=== PATIENT | female | born 1940 | race Caucasian/White ===

== ENCOUNTER 2016-09-21 17:28 | Observation (INO) | payer MEDICARE ==
[2016-09-21] MEDS ORDERED: HYDROmorphone 1 MG/ML 1 ML SYRINGE IM STA (18:36)
[2016-09-21] MEDS ORDERED: HYDROmorphone 1 MG/ML 1 ML SYRINGE IVP STA (18:40)
[2016-09-21] MEDS ORDERED: ONDANSETRON 4 MG/2 ML VIAL IVP STA (18:40)
--- NOTE | 2016-09-21 18:48 | ED ---
Lower Extremity Injury HPI - General Source: patient, RN notes reviewed, old records reviewed Mode of arrival: wheelchair Limitations: no limitations <Kristine Mera - Last Filed: 09/21/16 21:29> <Alec Brannon - Last Filed: 09/21/16 21:53> - General Chief Complaint: Extremity Injury, Lower Stated Complaint: Left knee popping/pain Time Seen by Provider: 09/21/16 18:24 - History of Present Illness Initial Comments: This is a 75-year-old female presenting to the emergency Department chief complaint of right hip and knee pain after twisting and feeling a popping sensation while gardening today. Patient reports that she's had bilateral hip replacements in 1989 and 1990 respectively. Patient reports that she's had also bilateral hip revisions. Her right hip was recently done in March. She reports that she is from [place] and visiting her son for vacation. Patient reports that the pain radiates through her entire hip, pelvis and down to her knee. Patient denies any peripheral paresthesias over her feet and ankles. She put that she does have some flexion and extension of the knee but it does cause pain radiating up to the hip. Patient reports that she fell once earlier in the day and felt a cracking sensation but was shortly able to bear weight on it afterwards. She states that she did fall a second time and have a twisting a popping sensation in which she cannot bear any weight. Her son and her son's friend had a carry her to the car to come to the emergency department. ( Kristine Mera) - Related Data Home Medications Medication Instructions Recorded Confirmed Aspirin 81 mg PO DAILY 09/21/16 09/21/16 Simvastatin [Zocor] 20 mg PO DAILY 09/21/16 09/21/16 metFORMIN HCL [Glucophage] 500 mg PO DAILY 09/21/16 09/21/16 Allergies Allergy/AdvReac Type Severity Reaction Status Date / Time No Known Allergies Allergy Verified 09/21/16 18:37 Review of Systems ROS Other: All systems not noted in ROS Statement are negative. <Kristine Mera - Last Filed: 09/21/16 21:29> ROS Other: All systems not noted in ROS Statement are negative. <Alec Brannon - Last Filed: 09/21/16 21:53> ROS Statement: Those systems with pertinent positive or pertinent negative responses have been documented in the HPI. Past Medical History Past Medical History: Diabetes Mellitus History of Any Multi-Drug Resistant Organisms: None Reported Additional Past Surgical History / Comment(s): (R) hip revision Past Psychological History: No Psychological Hx Reported Smoking Status: Never smoker Past Alcohol Use History: Occasional Past Drug Use History: None Reported <Kristine Mera - Last Filed: 09/21/16 21:29> General Exam Limitations: no limitations General appearance: alert, in no apparent distress Head exam: Present: atraumatic, normocephalic, normal inspection Eye exam: Present: normal appearance, PERRL, EOMI. Absent: scleral icterus, conjunctival injection, periorbital swelling ENT exam: Present: normal exam, mucous membranes moist Neck exam: Present: normal inspection. Absent: tenderness, meningismus, lymphadenopathy Respiratory exam: Present: normal lung sounds bilaterally. Absent: respiratory distress, wheezes, rales, rhonchi, stridor Cardiovascular Exam: Present: regular rate, normal rhythm, normal heart sounds. Absent: systolic murmur, diastolic murmur, rubs, gallop, clicks GI/Abdominal exam: Present: soft, normal bowel sounds. Absent: distended, tenderness, guarding, rebound, rigid Extremities exam: Present: normal inspection, full ROM, normal capillary refill. Absent: tenderness, pedal edema, joint swelling, calf tenderness Right Hip exam: Present: internal rotation, shortening. Absent: full ROM, tenderness Upper Leg exam: Absent: normal inspection, full ROM Knee exam: Present: normal inspection Ankle exam: Present: normal inspection, full ROM Foot/Toe exam: Present: normal inspection, full ROM Neurovascular tendon exam: Present: no vascular compromise Gait: not tested/not observed. negative: observed and normal Back exam: Present: normal inspection Neurological exam: Present: alert, oriented X3, CN II-XII intact Psychiatric exam: Present: normal affect, normal mood Skin exam: Present: warm, dry, intact, normal color. Absent: rash <Kristine Mera - Last Filed: 09/21/16 21:29> <Alec Brannon - Last Filed: 09/21/16 21:53> - General Exam Comments Initial Comments: 75-year-old female. Patient appears to be in acute discomfort. (Kristine Mera ) Procedures <Kristine Mera - Last Filed: 09/21/16 21:29> - Procedural Sedation Indications: fracture/dislocation reduction Mallampati Airway Score: 2 Preparation: desk monitor applied, pulse oximeter, capnometry used, supplemental O2 applied, suction/airway equipment at bedside, IV secured IV Propofol Dose (mgs): 110 Complications: none Patient Tolerated Procedure: well <Alec Brannon - Last Filed: 09/21/16 21:53> - Procedural Sedation Additional Comments: Right hip dislocation (Alec Brannon) Medical Decision Making - Lab Data Result diagrams: 09/21/16 18:50 09/21/16 18:50 <Kristine Mera - Last Filed: 09/21/16 21:29> - Lab Data Result diagrams: 09/21/16 18:50 09/21/16 18:50 <Alec Brannon - Last Filed: 09/21/16 21:53> - Medical Decision Making Patient with right hip dislocation. Patient has had bilateral hip replacement in the past. She does not have an orthopedic surgeon in this health system. Case is discussed with orthopedic surgery human resources compensation analyst and the patient will be evaluated in the emergency department urgently. Patient is sedated with propofol. Right hip was reduced under conscious sedation by orthopedic surgery in the emergency department. Patient will be observed to orthopedic surgery. (Alec Brannon) - Lab Data Lab Results 09/21/16 09/21/16 09/21/16 Range/Units 18:50 18:50 18:50 WBC 15.8 H (3.8-10.6) k/uL RBC 4.15 (3.80-5.40) m/uL Hgb 13.1 (11.4-16.0) gm/dL Hct 37.6 (34.0-46.0) % MCV 90.7 (80.0-100.0) fL MCH 31.5 (25.0-35.0) pg MCHC 34.8 (31.0-37.0) g/dL RDW 13.6 (11.5-15.5) % Plt Count 236 (150-450) k/uL Neutrophils % 81 % Lymphocytes % 14 % Monocytes % 3 % Eosinophils % 1 % Basophils % 0 % Neutrophils # 12.8 H (1.3-7.7) k/uL Lymphocytes # 2.3 (1.0-4.8) k/uL Monocytes # 0.4 (0-1.0) k/uL Eosinophils # 0.1 (0-0.7) k/uL Basophils # 0.1 (0-0.2) k/uL PT 10.8 (9.0-12.0) sec INR 1.1 (<1.1) APTT 26.4 (22.0-30.0) sec Sodium 142 (137-145) mmol/L Potassium 3.8 (3.5-5.1) mmol/L Chloride 109 H (98-107) mmol/L Carbon Dioxide 19 L (22-30) mmol/L Anion Gap 14 mmol/L BUN 18 H (7-17) mg/dL Creatinine 0.86 (0.52-1.04) mg/dL Est GFR (MDRD) Af Amer >60 (>60 ml/min/1.73 sqM) Est GFR (MDRD) Non-Af >60 (>60 ml/min/1.73 sqM) Glucose 163 H (74-99) mg/dL Calcium 9.6 (8.4-10.2) mg/dL Critical Care Time Critical Care Time: Yes Total Critical Care Time: 35 <Alec Brannon - Last Filed: 09/21/16 21:53> Disposition Time of Disposition: 21:30 <Kristine Mera - Last Filed: 09/21/16 21:29> <Alec Brannon - Last Filed: 09/21/16 21:53> Clinical Impression: Hip dislocation, right Disposition: ADMITTED IP TO THIS HOSP Condition: Stable
[2016-09-21 18:59] LABS: Basophils # (A) 0.1 k/uL (0-0.2); Basophils % (A) 0 %; CH 31.2; CHCM 34.6; Eosinophils # (A) 0.1 k/uL (0-0.7); Eosinophils % (A) 1 %; HCT 37.6 % (34.0-46.0); HDW 2.33; HGB 13.1 gm/dL (11.4-16.0); Luc # (Auto) 0.14; Luc % (Auto) 1; Lymphocytes # (A) 2.3 k/uL (1.0-4.8); Lymphocytes % (A) 14 %; MCH 31.5 pg (25.0-35.0); MCHC 34.8 g/dL (31.0-37.0); MCV 90.7 fL (80.0-100.0); Mean Platelet Volume 8.7; Monocytes # (A) 0.4 k/uL (0-1.0); Monocytes % (A) 3 %; Neutrophils # (A) 12.8 k/uL (1.3-7.7); Neutrophils % (A) 81 %; RBC 4.15 m/uL (3.80-5.40); RDW 13.6 % (11.5-15.5); WBC 15.8 k/uL (3.8-10.6); WBC (Perox) 15.96
[2016-09-21 19:08] LABS: Anion Gap 14 mmol/L; Blood Urea Nitrogen 18 mg/dL (7-17); Calcium 9.6 mg/dL (8.4-10.2); Carbon Dioxide 19 mmol/L (22-30); Chloride 109 mmol/L (98-107); Glucose 163 mg/dL (74-99); Non-African American GFR(MDRD) >60 (>60 ml/min/1.73 sqM); Potassium 3.8 mmol/L (3.5-5.1); Sodium 142 mmol/L (137-145)
[2016-09-21 19:11] LABS: INR 1.1 (<1.1); Partial Thromboplastin Time 26.4 sec (22.0-30.0); Prothrombin Time 10.8 sec (9.0-12.0)
--- NOTE | 2016-09-21 20:04 | XR ---
EXAMINATION TYPE: XR knee complete RT DATE OF EXAM: 09/21/2016 COMPARISON: NONE HISTORY: Pain unable to straighten the TECHNIQUE: Three-view right knee FINDINGS: No acute fractures evident no joint effusion is evident. Joint spaces preserved. Exam is li mited somewhat due to positioning. IMPRESSION: 1. No acute osseous abnormality.
--- NOTE | 2016-09-21 20:05 | XR ---
EXAMINATION TYPE: XR Hip RT and AP Pelvis DATE OF EXAM: 09/21/2016 COMPARISON: NONE HISTORY: Twisted leg, fall TECHNIQUE: 3 view right hip with AP pelvis FINDINGS: Right femoral prosthesis is present. The femoral prosthesis is present. The right femoral prosthesis femoral head is dislocated from the articular acetabular component. No a cute fractures identified. IMPRESSION: 1. Dislocation of the humeral component. The right femoral prosthesis. 2. No acute fractures are evident
[2016-09-21] MEDS ORDERED: SODIUM CHLORIDE 0.9% 1,000 ML IV ONE (20:35)
[2016-09-21] MEDS ORDERED: SODIUM CHLORIDE 0.9% 1,000 ML IV SCH (20:45)
[2016-09-21] MEDS: PROPOFOL 10 MG/ML 20 ML VIAL IV STA ×2 (21:01→21:07)
[2016-09-21] MEDS ORDERED: ALPRAZolam 0.25 MG TAB PO PRN (21:24)
[2016-09-21] MEDS ORDERED: NALOXONE 0.4 MG/ML 1 ML VIAL IV PRN (21:24)
[2016-09-21] MEDS ORDERED: ONDANSETRON 4 MG/2 ML VIAL IVP PRN (21:24)
[2016-09-21] MEDS ORDERED: Acetaminophen-Codeine 300-30mg TAB PO PRN (21:24)
[2016-09-21] MEDS ORDERED: IBUPROFEN 400 MG TAB PO PRN (21:24)
[2016-09-21] MEDS ORDERED: HYDROmorphone 1 MG/ML 1 ML SYRINGE IV PRN (21:24)
--- NOTE | 2016-09-21 21:36 | P.HPOR ---
History of Present Illness H&P Date: 09/21/16 Chief Complaint: Right hip pain Patient is seen and examined at bedside. She is a very pleasant 75-year-old female who is in [place] visiting her son who lives in [facility]. The patient actually lives in [facility]. She was visiting in doing some gardening with her son and was bending and twisting when she felt her hip pop out of socket she had sudden pain in felt to the ground she was brought by her son in their private car to the ambulance where she was found to have a hip prosthetic dislocation. Patient has history of bilateral hip prostheses done in early . 2 years ago she had her left hip revised and last year in March she had her right hip revised by her orthopedic surgeon in [place]. She says she had been doing well without any problems without any significant complaints or issues. She was doing well until today when she felt the hip pop out of socket and had sudden pain at her right hip. She denies any other injuries denies any chest pain shortness of breath she denies any numbness tingling or lower extremity she denies any changes in bowel bladder function denies any other injury denies any other trauma denies neck pain or headaches or loss of consciousness. Review of Systems As per her HPI. She has severe right hip pain with any sort of motion at all. She is able to wiggle her toes and ankles. She does not feel that she has significant pain at her knee but she does have pain extending down her thigh. She denies any chest pain shortness of breath. She has no pain in her left leg. Past Medical History Past Medical History: Diabetes Mellitus, Musculoskeletal Disorder (She has history of bilateral hip prosthetics for degenerative joint disease.) History of Any Multi-Drug Resistant Organisms: None Reported Additional Past Surgical History / Comment(s): (R) hip revision Past Psychological History: No Psychological Hx Reported Smoking Status: Never smoker Past Alcohol Use History: Occasional Past Drug Use History: None Reported Medications and Allergies Home Medications Medication Instructions Recorded Confirmed Type Aspirin 81 mg PO DAILY 09/21/16 09/21/16 History Simvastatin [Zocor] 20 mg PO DAILY 09/21/16 09/21/16 History metFORMIN HCL [Glucophage] 500 mg PO DAILY 09/21/16 09/21/16 History Allergies Allergy/AdvReac Type Severity Reaction Status Date / Time No Known Allergies Allergy Verified 09/21/16 18:37 Physical Examination Osteopathic Statement: *. No significant issues noted on an osteopathic structural exam other than those noted in the History and Physical/Consult. - Hip right Gait: other (The patient is unable to mobilize due to her pain in her right hip. She has significant shortening and internal rotation on the right lower extremity. She does have sustained dorsal flexion plantarflexion and EHL. Her left leg does not have pain with palpation or range of motion but it gives her pain whenever she moves at her right hip. Her evidence of nontender chest is good excursion deep duration extra and abdomen is soft nontender neck is nontender palpation her upper extremity to full active and passive range of motion. She has well-healed incisions bilateral hips. Pulses are intact distally to over 4. Refill less than 2 seconds) Results - Labs Labs: Abnormal Lab Results - Last 24 Hours (Table) 09/21/16 09/21/16 Range/Units 18:50 18:50 WBC 15.8 H (3.8-10.6) k/uL Neutrophils # 12.8 H (1.3-7.7) k/uL Chloride 109 H (98-107) mmol/L Carbon Dioxide 19 L (22-30) mmol/L BUN 18 H (7-17) mg/dL Glucose 163 H (74-99) mg/dL H & H 09/21/16 Range/Units 18:50 Hgb 13.1 (11.4-16.0) gm/dL Hct 37.6 (34.0-46.0) % Coagulation 09/21/16 Range/Units 18:50 INR 1.1 (<1.1) Result Diagrams: 09/21/16 18:50 09/21/16 18:50 - Diagnostic results Hip x-ray: report reviewed, image reviewed (She has bilateral hip prostheses. Her right hip has obvious dislocation. I do not see obvious loosening of the acetabulum or femoral stem. The left side appears to be intact and without evidence of loosening fracture or fatigue.) Assessment and Plan Plan: Assessment Right hip prosthetic dislocation, acute Right hip pain, acute History of right hip replacement with revision approximately year and a half ago done at [facility] History of left hip replacement with revision done approximately 2 years ago in [facility] Plan The patient has an acute right hip prosthetic dislocation without evidence of loosening hardware. She will require closed reduction and try think we can perform in the emergency room with sedation. I discussed the case with Dr. Brannon the attending physician in the emergency room and he is agreeable. I discussed the issues with the patient at length and discussed the risks associated with her injury and dislocation the possible need for revision surgery possible recurrence of dislocation. Possible continued pain and loss of function and loss of ambulatory status was all explained to her I think that she can do well with reduction I had a closed manner in the emergency room with sedation and I answered her questions best my ability G understand and she is agreeable to proceed with closed reduction of her right hip prosthetic hip dislocation in the emergency room. She is signed informed consent. The attending emergency room physician will be managing the sedation. PROCEDURE PERFORMED IN THE EMERGENCY ROOM The patient was given sedation in the emergency room with the attending physician of the emergency room given propofol and monitoring with respirator therapy and nursing staff and close monitoring of airway and C-spine continuously throughout the procedure. Together we were able to perform a gentle closed reduction technique of her right hip using traction and internal/ external rotation is able to get a good reduction of the right hip prosthetic prosthesis with good audible clunk and feel. She had good range of motion postreduction. Postreduction x-rays were taken which showed excellent alignment and position of the reduced prosthesis at the right hip without any evidence of fracture or loosening. The patient is going to be admitted for observation overnight and with hip dislocation precautions. She'll likely be able to be discharged home tomorrow with weightbearing as tolerated and continue hip dislocation precautions with close follow-up when she returns home to [facility] [place]. I discussed this with the patient and she is agreeable.
--- NOTE | 2016-09-21 21:52 | XR ---
EXAMINATION TYPE: XR Hip Limited RT DATE OF EXAM: 09/21/2016 COMPARISON: NONE HISTORY: Dislocated right hip TECHNIQUE: Single AP right hip FINDINGS: Right hip prosthesis is present. The femoral component articulates with the acetabular comp onent on the AP projection. No obvious dislocation is evident on this image. IMPRESSION: 1. Reduction of previously dislocated right hip prosthesis.
[2016-09-21 22:54] VITALS: BMI 25.7
[2016-09-22 06:37] LABS: Basophils % (A) 0 %; CH 30.9; CHCM 33.3; Eosinophils # (A) 0.1 k/uL (0-0.7); Eosinophils % (A) 1 %; HCT 33.8 % (34.0-46.0); HDW 2.28; HGB 11.3 gm/dL (11.4-16.0); Luc # (Auto) 0.14; Luc % (Auto) 2; Lymphocytes % (A) 35 %; MCH 31.3 pg (25.0-35.0); MCHC 33.5 g/dL (31.0-37.0); MCV 93.4 fL (80.0-100.0); Monocytes # (A) 0.5 k/uL (0-1.0); Monocytes % (A) 6 %; Neutrophils # (A) 4.7 k/uL (1.3-7.7); Neutrophils % (A) 56 %; RBC 3.61 m/uL (3.80-5.40); RDW 13.8 % (11.5-15.5); WBC 8.4 k/uL (3.8-10.6); WBC (Perox) 8.73
[2016-09-22 08:19] VITALS: BP 126/62; PULSE 76; RESP 15; TEMP 98.1
--- NOTE | 2016-09-22 08:57 | P.DS ---
Providers Date of admission: 09/21/16 21:22 Attending physician: Dean Cooper Primary care physician: Stated None Hospital Course: The patient presented on the day of admission as per her history and physical and procedural note. She had sustained a right hip prosthetic dislocation yesterday while she was doing some gardening and we were able to do a closed reduction in the emergency room with sedation. She was admitted for observation after that. She has been doing well overnight. She is no longer playing pain. She has been ambulatory with her walker. She is maintaining dislocation precautions. Physical Exam Her thigh and calf are soft nontender. She has good range of motion at her knee hip and ankle. She has sustained dorsal flexion plantar flexion and EHL. Abdomen soft and nontender. Chest has good excursion with deep inspiration and expiration. The patient has active and passive range of motion intact at the upper and lower extremities. There is no acute change in neurologic status. Hospital Course Right hip prosthetic dislocation status post closed reduction performed in the emergency room. The patient has been making good progress. she has been able to mobilize with her reduction and maintain her hip dislocation precautions as instructed. She can wear her knee immobilizer for her comfort. The patient has been able to advance their diet, and is tolerating diet adequately. The pain is now controlled appropriately with oral medications. The patient has been able to increase their mobilization. The patient has progressed appropriately. I think they are in good stable condition for discharge today. They will be sent home with appropriate prescriptions. I answered their questions to the best of my ability in a language that they can understand and they are agreeable with the plan. They will follow up as directed with her own orthopedic surgeon in [place] when she returns home next week. Patient Condition at Discharge: Good Plan - Discharge Summary New Discharge Prescriptions: No Action Simvastatin [Zocor] 20 mg PO DAILY metFORMIN HCL [Glucophage] 500 mg PO DAILY Aspirin 81 mg PO DAILY Discharge Medication List Aspirin 81 mg PO DAILY 09/21/16 [History] Simvastatin [Zocor] 20 mg PO DAILY 09/21/16 [History] metFORMIN HCL [Glucophage] 500 mg PO DAILY 09/21/16 [History] Follow up Appointment(s)/Referral(s): None,Stated [Primary Care Provider] - 1 Week (Follow-up with patient's own orthopedic surgeon in [place] as soon as possible after she returns home) Activity/Diet/Wound Care/Special Instructions: Right hip dislocation precautions Weight bear as tolerated Knee immobilizer for comfort Discharge Disposition: HOME SELF-CARE
[2016-09-22] MEDS ORDERED: metFORMIN 500 MG TAB PO SCH ×2 (09:00)
[2016-09-22] MEDS ORDERED: ATORVASTATIN 10 MG TAB PO SCH (09:00)
[2016-09-22] MEDS ORDERED: ASPIRIN 81 MG CHEW PO SCH ×2 (09:00)
[2016-09-22] MEDS ORDERED: NON-FORMULARY DRUG (Simvastatin [Zocor] 20 MG) PO SCH (09:00)
== END 2016-09-22 10:42 | disposition home or self-care (01) ==
LOC: EC 17:28 → 3SUR 21:22
PROVIDERS: ADMIT Orthopaedic Surgery Orthopaedic Surgery of the Spine; ATTEND Orthopaedic Surgery Orthopaedic Surgery of the Spine
DX: T84.020A Dislocation of internal right hip prosthesis, initial encounter (principal); Y79.2 Prosthetic and other implants, materials and accessory orthopedic devices associated with adverse incidents; Z79.899 Other long term (current) drug therapy; Z79.84 Long term (current) use of oral hypoglycemic drugs; Z79.82 Long term (current) use of aspirin; E11.9 Type 2 diabetes mellitus without complications; Z96.643 Presence of artificial hip joint, bilateral; M25.561 Pain in right knee
CPT/HCPCS: 27265; 96361 ×2; 96374 ×2; 96375 ×2; 99285 ×2; 36415; 97162; 80048; 85025 ×2; 85610; 85730; 73501; 73502; 73562; G0378 ×2; L1830; J2405; J1170; J2704